=== PATIENT | male | born 1970 | race Caucasian/White ===

== ENCOUNTER 2019-12-19 15:19 | Outpatient (CLI) | payer OTHER | END 2019-12-19 15:26 | disposition home or self-care (01) | LOC: LAB 15:19 | PROVIDERS: ATTEND Surgery | DX: R97.20 Elevated prostate specific antigen [PSA] (principal) ==

== ENCOUNTER 2019-12-28 07:10 | Outpatient (CLI) | payer OTHER | END 2019-12-28 07:24 | disposition home or self-care (01) | LOC: SONOGRAMA 07:10 | PROVIDERS: ATTEND Surgery | DX: R97.20 Elevated prostate specific antigen [PSA] (principal) ==